=== PATIENT | female | born 1950 | race African-American/Black ===

== ENCOUNTER 2019-12-19 19:09 | Inpatient (IN) | payer MEDICARE, MEDICAID ==
[~2019-12-19] VITALS: Ht 160 cm; Wt 68.0 kg
[~2019-12-19 19:09] MED LIST: ATORVASTATIN; AZIT250T PO; MED4 INH; PHEN100C4 PO; PHENYTOIN; TERB5TAB15 PO
[2019-12-19 21:56] LABS: BASOPHILS % 0.5 % (0.0-2.0); EOSINOPHILS % 0.3 % (0.0-5.0); HEMATOCRIT. 40.3 % (36.0-48.0); HEMOGLOBIN. 13.5 g/dL (12.0-16.0); LYMPHOCYTES % 32.9 % (20.0-50.0); MEAN CORPUSCULAR HEMOGLOBIN 30.4 pg (28.0-32.0); MEAN CORPUSCULAR VOLUME 90.7 fL (81.0-99.0); MEAN PLATELET VOLUME 8.1 fl (7.4-10.4); MONOCYTES % 9.9 % (2.0-8.0); NEUTROPHILS % 56.4 % (40.0-76.0); PLATELET 260 x1000/uL (130-400); RED BLOOD CELL COUNT 4.44 mill/uL (4.2-5.4); RED CELL DISTRIBUTION WIDTH 13.7 % (11.6-14.6)
[2019-12-19 21:58] LABS: CHLORIDE 100 mEq/L (98-107)
[2019-12-19 22:44] LABS: CLARITY URINE CLOUDY (CLEAR); COLOR URINE YELLOW (YELLOW); KETONES URINE TRACE (NEGATIVE); LEUKOCYTE ESTERASE URINE 2+ (NEGATIVE); NITRITE URINE NEGATIVE (NEGATIVE); OCCULT BLOOD URINE NEGATIVE (NEGATIVE); PROTEIN URINE TRACE (NEGATIVE)
[2019-12-20] MEDS ORDERED: CEFTRIAXONE 1 G PREMIX 50 ML IV ONE
[2019-12-20] MEDS ORDERED: MORPHINE SULFATE 2 MG/ML CPJ (NOT FOR IM USE) IV PRN (06:45)
[2019-12-20] MEDS ORDERED: LORAZEPAM 2MG/ML CPJ IV PRN (06:45)
[2019-12-20] MEDS ORDERED: HYDROCODONE/ACETAMINOPHEN 5/325MG TABLET PO PRN (06:45)
[2019-12-20] MEDS ORDERED: CLONIDINE 0.1MG TABLET PO PRN (06:45)
[2019-12-20] MEDS ORDERED: ONDANSETRON HCL 4MG/2ML INJ IV PRN (06:45)
[2019-12-20] MEDS: SODIUM CHLORIDE 0.9% 1,000 ML IV SCH ×2 (07:31→13:07)
[2019-12-20 11:20] VITALS: BP 121/79
[2019-12-20 11:44] VITALS: BP 121/79
[2019-12-20] MEDS: ENOXAPARIN 40MG/0.4ML SYR SUBCUT SCH (13:07)
[2019-12-20 17:11] LABS: CREATINE KINASE 91 IU/L (26-192)
[2019-12-20 17:12] LABS: CREATINE KINASE MB FRACTION < 1.0 ng/mL (0.5-3.6)
[2019-12-20 20:29] VITALS: BP 118/58
[2019-12-20] MEDS ORDERED: PHENYTOIN SODIUM EXTENDED 100MG CAPSULE PO SCH (21:00)
[2019-12-20] MEDS ORDERED: CEFTRIAXONE 1 G PREMIX 50 ML IV SCH (23:00)
[2019-12-21] VITALS: BP 119/79
[2019-12-21 01:29] LABS: CREATINE KINASE MB FRACTION < 1.0 ng/mL (0.5-3.6)
[2019-12-21 01:30] LABS: CREATINE KINASE 104 IU/L (26-192)
[2019-12-21 04:00] VITALS: BP 116/70
[2019-12-21] MEDS: SODIUM CHLORIDE 0.9% 1,000 ML IV SCH ×2 (04:48→13:50)
[2019-12-21 07:19] LABS: BASOPHILS % 0.7 % (0.0-2.0); EOSINOPHILS % 0.2 % (0.0-5.0); HEMATOCRIT. 36.4 % (36.0-48.0); HEMOGLOBIN. 12.3 g/dL (12.0-16.0); LYMPHOCYTES % 34.4 % (20.0-50.0); MEAN CORPUSCULAR VOLUME 91.4 fL (81.0-99.0); MEAN PLATELET VOLUME 8.4 fl (7.4-10.4); MONOCYTES % 9.2 % (2.0-8.0); NEUTROPHILS % 55.5 % (40.0-76.0); PLATELET 225 x1000/uL (130-400); RED BLOOD CELL COUNT 3.99 mill/uL (4.2-5.4)
[2019-12-21 07:55] LABS: CHLORIDE 101 mEq/L (98-107)
[2019-12-21 08:00] VITALS: BP 106/71
[2019-12-21 08:04] LABS: PHOSPHORUS 3.2 mg/dL (2.5-4.9)
[2019-12-21] MEDS: ENOXAPARIN 40MG/0.4ML SYR SUBCUT SCH (08:44)
[2019-12-21 12:00] VITALS: BP 111/54
[2019-12-21] MEDS ORDERED: SULF1TAB48 MT (14:37)
[2019-12-21] MEDS ORDERED: SULF1TAB47 MT (14:37)
[2019-12-21 16:00] VITALS: BP 116/72
[2019-12-21 16:31] VITALS: BP 116/72
== END 2019-12-21 19:13 | disposition home or self-care (01) | DRG 690 ==
LOC: ER 23:12 → 6EST 12-20 00:39 → CMPBEDREQ 12-20 01:07 → EDBEDREQ 12-20 07:39 → ENRESERV 12-20 10:26 → 6EST 12-20 12:05
PROVIDERS: ADMIT Internal Medicine Nephrology; ATTEND Internal Medicine Nephrology
DX: N39.0 Urinary tract infection, site not specified (principal); I10 Essential (primary) hypertension; R29.6 Repeated falls; Z79.899 Other long term (current) drug therapy
CPT/HCPCS: 36415; 71045; 80048; 80053; 81003; 82550; 82553; 83735; 83880; 84100; 84484; 85025; 93005; 99285; J0696; J1650

== ENCOUNTER 2021-10-28 07:58 | Inpatient (IN) | payer OTHER, MEDICAID ==
[~2021-10-28] VITALS: Ht 160 cm; Wt 66.7 kg
[2021-10-28 08:53] LABS: BASOPHILS % 0.4 % (0.0-2.0); HEMOGLOBIN. 12.2 g/dL (12.0-16.0); LYMPHOCYTES % 18.1 % (20.0-50.0); MEAN CORPUSCULAR HEMOGLOBIN 30.8 pg (28.0-32.0); MEAN CORPUSCULAR VOLUME 90.9 fL (81.0-99.0); MEAN PLATELET VOLUME 8.7 fl (7.4-10.4); MONOCYTES % 11.4 % (2.0-8.0); NEUTROPHILS % 70.1 % (40.0-76.0); PLATELET 240 x1000/uL (130-400); RED BLOOD CELL COUNT 3.96 mill/uL (4.2-5.4); RED CELL DISTRIBUTION WIDTH 14.7 % (11.6-14.6)
[2021-10-28 08:55] LABS: CHLORIDE 97 mEq/L (98-107)
[2021-10-28 08:58] LABS: ETHANOL BLOOD < 10 mg/dL
[2021-10-28] MEDS ORDERED: POTASSIUM CHLORIDE INJ 40 MEQ in DEXT 5% WATER 250 ML IV ONE (09:15)
[2021-10-28] MEDS ORDERED: POTASSIUM CHLORIDE 20MEQ TABLET SR PO ONE (09:15)
[2021-10-28 09:22] LABS: CLARITY URINE CLEAR (CLEAR); COLOR URINE YELLOW (YELLOW); KETONES URINE NEGATIVE (NEGATIVE); LEUKOCYTE ESTERASE URINE NEGATIVE (NEGATIVE); NITRITE URINE NEGATIVE (NEGATIVE); OCCULT BLOOD URINE 1+ (NEGATIVE); PROTEIN URINE NEGATIVE (NEGATIVE); SPECIFIC GRAVITY URINE 1.008 (1.005-1.030); UROBILINOGEN URINE 0.2 E.U./dL (0.2-1.0)
[2021-10-28 09:29] LABS: *AMPHETAMINES SCREEN URINE NEGATIVE (NEGATIVE); *BARBITURATES SCREEN URINE NEGATIVE (NEGATIVE); *BENZODIAZEPINES SCREEN URINE NEGATIVE (NEGATIVE)
[2021-10-28 09:30] LABS: *COCAINE SCREEN URINE NEGATIVE (NEGATIVE); CANNABINOID URINE SCREEN NEGATIVE (NEGATIVE); METHADONE URINE SCREEN NEGATIVE (NEGATIVE); OPIATES URINE SCREEN NEGATIVE (NEGATIVE); PHENCYCLIDINE URINE SCREEN NEGATIVE (NEGATIVE)
[2021-10-28] MEDS ORDERED: SODIUM CHLORIDE 0.9% 1,000 ML IV ONE (09:30)
[2021-10-28] MEDS ORDERED: ONDANSETRON HCL 4MG/2ML INJ IV PRN (14:15)
[2021-10-28] MEDS ORDERED: ACETAMINOPHEN 325MG TABLET PO PRN (14:15)
[2021-10-28] MEDS: LORAZEPAM 2MG/ML CPJ IV PRN ×2 (17:27→21:31)
[2021-10-28] MEDS: PHENYTOIN SODIUM EXTENDED 100MG CAPSULE PO SCH (21:31)
[2021-10-29 05:18] LABS: CHLORIDE 106 mEq/L (98-107)
[2021-10-29 08:15] VITALS: BP 121/73
[2021-10-29 12:00] VITALS: BP 117/67
[2021-10-29 16:00] VITALS: BP 118/72
[2021-10-29 20:00] VITALS: BP 116/53
[2021-10-29] MEDS: PHENYTOIN SODIUM EXTENDED 100MG CAPSULE PO SCH (21:50)
[2021-10-30] VITALS: BP 115/67
[2021-10-30 04:00] VITALS: BP 114/81
[2021-10-30 07:57] VITALS: BP 120/71
[2021-10-30] MEDS ORDERED: INFLUENZA VACCINE 05/PF 0.5 ML SYRINGE IM ONE (09:00)
[2021-10-30 12:00] VITALS: BP 110/56
[2021-10-30 12:06] VITALS: BP 120/71
[2021-10-30] MEDS ORDERED: PNEUMOCOCCAL 23-VAL P-SAC VAC 0.5 ML IM ONE (14:00)
== END 2021-10-30 17:40 | disposition home or self-care (01) | DRG 100 ==
LOC: ER 07:58 → MICUSO 12:05 → EDBEDREQ 15:32 → EDBEDREQSVC 15:32 → EDBEDREQ 15:33 → 8WST 10-29 10:53
PROVIDERS: ADMIT Internal Medicine; ATTEND Internal Medicine
DX: G40.909 Epilepsy, unspecified, not intractable, without status epilepticus (principal); N17.0 Acute kidney failure with tubular necrosis; G93.41 Metabolic encephalopathy; E87.6 Hypokalemia; I10 Essential (primary) hypertension; K80.20 Calculus of gallbladder without cholecystitis without obstruction; R74.01 Elevation of levels of liver transaminase levels
CPT/HCPCS: 36415; 70551; 76705; 80048; 80053; 80185; 80305; 80320; 81003; 82140; 82962; 83735; 85025; 93005; 97161; 99285; C1893; J2060; J3480; J7040; J7060; G0480